=== PATIENT | male | born 1965 | race Asian ===

== ENCOUNTER 2020-12-27 11:25 | Emergency (ER) | payer MEDICAID ==
[~2020-12-27] VITALS: Ht 170.2 cm; Wt 76.4 kg
[2020-12-27 12:34] LABS: BASO % 0.2 % (0.0-1.0); EOS % 0.5 % (0.0-3.0); HEMATOCRIT 43.2 % (42.0-52.0); HEMOGLOBIN 13.9 g/dl (13.5-17.5); LYMPH # 1.1 10^3/uL (1.5-5.0); LYMPH % 19.3 % (24.0-44.0); MEAN CORPUSCULAR HEMOGLOBIN 30.4 pg (27.0-33.0); MEAN CORPUSCULAR HGB CONC 32.2 g/dl (32.0-36.5); MEAN CORPUSCULAR VOLUME 94.5 fl (80.0-96.0); MONO # 0.4 10^3/uL (0.0-0.8); MONO % 7.6 % (2.0-8.0); NEUTROPHILS # 4.1 10^3/uL (1.5-8.5); NEUTROPHILS % 72.2 % (36.0-66.0); PLATELET COUNT, AUTOMATED 190 10^3/uL (150-450); RED BLOOD COUNT 4.57 10^6/uL (4.30-6.10); WHITE BLOOD COUNT 5.7 10^3/uL (4.0-10.0)
--- NOTE | 2020-12-27 12:43 | REP ---
INDICATION: CHEST PAIN. COMPARISON: None TECHNIQUE: Portable AP chest with the patient upright FINDINGS: The lung bradley are clear. Cardiac size is normal. The erna, mediastinum and skeletal structures are unremarkable. IMPRESSION: Essentially negative portable chest <Electronically signed by Javi Davis > 12/27/20 [id number]
[2020-12-27 12:44] LABS: INR 1.04
[2020-12-27 12:45] LABS: PARTIAL THROMBOPLASTIN TIME 33.4 SECONDS (25.9-37.0)
[2020-12-27 13:02] LABS: ALBUMIN 3.6 GM/DL (3.2-5.2); ALT/SGPT 33 U/L (12-78); BILIRUBIN,DIRECT 0.2 MG/DL (0.0-0.2); BILIRUBIN,TOTAL 0.6 MG/DL (0.2-1.0); BLOOD UREA NITROGEN 14 MG/DL (7-18); CALCIUM LEVEL 8.8 MG/DL (8.5-10.1); CARBON DIOXIDE LEVEL 31 MEQ/L (21-32); CHLORIDE LEVEL 107 MEQ/L (98-107); CREATININE FOR GFR 0.84 MG/DL (0.70-1.30); FREE T4 0.88 NG/DL (0.76-1.46); GLOMERULAR FILTRATION RATE > 60.0 (>56); GLUCOSE, FASTING 182 MG/DL (70-100); LIPASE 71 U/L (73-393); NT-PRO BNP 44 PG/ML (<125); POTASSIUM SERUM 3.8 MEQ/L (3.5-5.1); SODIUM LEVEL 142 MEQ/L (136-145); THYROID STIMULATING HORMONE 0.567 uIU/ML (0.358-3.740); TOTAL PROTEIN 7.1 GM/DL (6.4-8.2)
--- NOTE | 2020-12-27 14:47 | REP ---
INDICATION: trauma. COMPARISON: Portable chest performed earlier today. TECHNIQUE: Chest CT without IV contrast. FINDINGS: There is no pneumothorax, hemothorax or pulmonary contusion. No mediastinal hematoma. There is no clavicle, scapula, sternal, rib or vertebral fracture. The unenhanced thoracic aorta is unremarkable. The cardiac size is normal. There is no pericardial effusion. Upper abdomen: The visual portions of the unenhanced liver, gallbladder, pancreas and spleen are unremarkable. The adrenals and renal upper poles are unremarkable. IMPRESSION: Essentially negative CT study of the chest. <Electronically signed by Javi Davis > 12/27/20 [id number]
[2020-12-27 15:10] VITALS: BP 118/74
--- NOTE | 2020-12-27 20:27 | ECGEPIP ---
[facility] - ED Test Date: 2020-12-27 Pat Name: BRITT GARZA Department: Room: - Gender: Male [employer]: DIMITRIS : 1965 Requested By: Pam Salazar Order Number: [id number] Reading MD: Clarisse Art Measurements Intervals [place] Rate: 58 P: 72 NE: 160 QRS: 83 QRSD: 86 T: 43 QT: 420 QTc: 412 Interpretive Statements Sinus bradycardia No prior Electronically Signed on 12-27-2020 20:26:58 EDT by Clarisse Art
== END 2020-12-27 15:25 | disposition home or self-care (01) ==
LOC: M ED 11:25
DX: R55 Syncope and collapse (principal)